=== PATIENT | male | born 1935 | race Caucasian/White ===

== ENCOUNTER 2018-07-03 09:02 | Day surgery (SDC) | payer BC ==
[~2018-07-03] VITALS: Ht 185.4 cm; Wt 83.9 kg
[~2018-07-03 09:02] MED LIST: LIDOcaine 1% 30ml preserv. free vial SQ STA
[2018-07-03 09:45] VITALS: BP 106/64
[2018-07-03] MEDS ORDERED: LACT1CAP65 PO (10:13)
[2018-07-03] MEDS ORDERED: [UNRECOGNIZED DRUG - OTHER] PO (10:13)
[2018-07-03] MEDS ORDERED: COU5T PO (10:13)
[2018-07-03] MEDS ORDERED: ALLO100T PO (10:13)
[2018-07-03] MEDS ORDERED: FURO80TA87 PO (10:13)
[2018-07-03] MEDS ORDERED: FOLI0.8T7 PO (10:13)
[2018-07-03] MEDS ORDERED: BETA1TAB20 PO (10:13)
[2018-07-03] MEDS ORDERED: FLO0.4C PO (10:13)
[2018-07-03] MEDS ORDERED: ESOM20CA PO (10:13)
[2018-07-03] MEDS ORDERED: DUTA0.5C40 PO (10:13)
--- NOTE | 2018-07-03 10:45 | NUR ---
ULTRASOUND ONLY. NO THORACENTESIS WAS DONE. PATIENT DISCHARGED WITH ALL BELONGINGS. NO DISTRESS NOTED. DENIES SOB.
== END 2018-07-03 10:48 | disposition home or self-care (01) ==
LOC: SSTAY O 09:02
PROVIDERS: ATTEND Radiology Diagnostic Radiology
DX: J90 Pleural effusion, not elsewhere classified (principal); J94.2 Hemothorax; I48.91 Unspecified atrial fibrillation; K21.9 Gastro-esophageal reflux disease without esophagitis; I12.0 Hypertensive chronic kidney disease with stage 5 chronic kidney disease or end stage renal disease; N18.5 Chronic kidney disease, stage 5; M19.90 Unspecified osteoarthritis, unspecified site; M10.9 Gout, unspecified; G89.29 Other chronic pain; H91.8X3 Other specified hearing loss, bilateral; Z99.2 Dependence on renal dialysis; Z72.89 Other problems related to lifestyle; Z86.2 Personal history of diseases of the blood and blood-forming organs and certain disorders involving the immune mechanism; Z85.828 Personal history of other malignant neoplasm of skin; Z79.01 Long term (current) use of anticoagulants; Z87.448 Personal history of other diseases of urinary system; Z88.2 Allergy status to sulfonamides; Z86.79 Personal history of other diseases of the circulatory system; Z87.891 Personal history of nicotine dependence; Z79.899 Other long term (current) drug therapy; Z88.8 Allergy status to other drugs, medicaments and biological substances; Z98.890 Other specified postprocedural states
CPT/HCPCS: 76604; J3490

== ENCOUNTER 2019-08-10 08:40 | Day surgery (SDC) | payer BC ==
[~2019-08-10] VITALS: Ht 182.9 cm; Wt 84.7 kg
[~2019-08-10 08:40] MED LIST changes: +ALLO100T PO; +BETA1TAB20 PO; +COU5T PO; +DUTA0.5C40 PO; +ESOM20CA PO; +FLO0.4C PO; +FOLI0.8T7 PO; +FURO80TA87 PO; +LACT1CAP65 PO; -LIDOcaine 1% 30ml preserv. free vial SQ STA; +[UNRECOGNIZED DRUG - OTHER] PO
[2019-08-10 09:35] VITALS: BP 95/55
[2019-08-10 10:21] LABS: BASOPHILS % (AUTO) 0.9 % (0-1); EOSINOPHILS # (AUTO) 0.1 X10'3 (0-0.9); EOSINOPHILS % (AUTO) 2.4 % (0-6); HEMATOCRIT 30.7 % (42.0-52.0); HEMOGLOBIN 10.4 g/dl (14.0-17.9); LYMPHOCYTES # (AUTO) 0.8 X10'3 (1.1-4.8); LYMPHOCYTES % (AUTO) 18.2 % (21-51); MEAN CORPUSCULAR HEMOGLOBIN 34.4 PG (27.0-31.0); MEAN CORPUSCULAR HGB CONC 33.9 g/dL (33.0-36.5); MEAN CORPUSCULAR VOLUME 101.6 FL (78-98); MEAN PLATELET VOLUME 8.1 FL (7.4-10.4); MONOCYTES # (AUTO) 0.4 X10'3 (0-0.9); MONOCYTES % (AUTO) 9.9 % (2-12); NEUTROPHILS % (AUTO) 68.6 % (42-75); PLATELET COUNT 206 X10'3 (140-440); RED BLOOD COUNT 3.02 X10'6 (4.70-6.10); RED CELL DISTRIBUTION WIDTH 14.9 % (11.5-14.5); WHITE BLOOD COUNT 4.4 X10'3 (4.5-11.0)
[2019-08-10 10:45] VITALS: BP 96/55
[2019-08-10 10:59] VITALS: BP 119/48
[2019-08-10 11:13] VITALS: BP 92/50
[2019-08-10 11:28] VITALS: BP 104/74
== END 2019-08-10 11:40 | disposition home or self-care (01) ==
LOC: SSTAY O 08:40
PROVIDERS: ATTEND Radiology Diagnostic Radiology
DX: Q61.3 Polycystic kidney, unspecified (principal); Z79.01 Long term (current) use of anticoagulants; R10.9 Unspecified abdominal pain
CPT/HCPCS: 36415; 49405; 85025; 85610

== ENCOUNTER 2019-12-31 08:08 | Day surgery (SDC) | payer BC ==
[~2019-12-31] VITALS: Ht 182.9 cm; Wt 82.7 kg
[2019-12-31] VITALS (8 sets, daily range): BP systolic 102–111; BP diastolic 57–68
[~2019-12-31 08:08] MED LIST changes: -COU5T PO; +WARF-113 PO
[2019-12-31] MEDS ORDERED: albumin 25% 100mL bottle x 1 IV PRN (08:35)
[2019-12-31 14:51] LABS: GLUCOSE,BODY FLUID 106 MG/DL; LDH,BODY FLUID 104 U/L; TOTAL PROTEIN,BODY FLUID 3.6 G/DL
[2019-12-31 15:09] LABS: BF RBC COUNT 70 /CU MM; BF WBC COUNT 130 /CU MM (0-1000); BFAPPEAR HAZY; BFCOLOR YELLOW; BFVOLUME 48 ML; LYMPHOCYTES,BODY FLUID 68 %; MONOCYTES,BODY FLUID 26 %; NEUTROPHILS,BODY FLUID 6 %
== END 2019-12-31 12:20 | disposition home or self-care (01) ==
LOC: SSTAY O 08:08
PROVIDERS: ATTEND Radiology Vascular & Interventional Radiology
DX: J90 Pleural effusion, not elsewhere classified (principal); I10 Essential (primary) hypertension; Z88.2 Allergy status to sulfonamides; Z88.8 Allergy status to other drugs, medicaments and biological substances; Z98.890 Other specified postprocedural states; Z79.899 Other long term (current) drug therapy; Z79.01 Long term (current) use of anticoagulants
CPT/HCPCS: 32555; 36415; 71045; 82945; 83615; 84155; 84157; 85610; 87070; 87075; 89051

== ENCOUNTER 2022-05-05 08:51 | Inpatient (IN) | payer BC ==
[2022-05-05] VITALS (9 sets, daily range): BP systolic 98–113; BP diastolic 49–74
[~2022-05-05] VITALS: Ht 182.9 cm; Wt 84.1 kg
[2022-05-05 09:49] LABS: BASOPHILS % (AUTO) 0.5 % (0-1); EOSINOPHILS % (AUTO) 0.1 % (0-6); LYMPHOCYTES # (AUTO) 0.8 X10'3 (1.1-4.8); LYMPHOCYTES % (AUTO) 20.3 % (21-51); MEAN CORPUSCULAR HEMOGLOBIN 31.5 PG (27.0-31.0); MEAN CORPUSCULAR HGB CONC 32.7 g/dL (33.0-36.5); MEAN CORPUSCULAR VOLUME 96.6 FL (78-98); MONOCYTES # (AUTO) 0.6 X10'3 (0-0.9); MONOCYTES % (AUTO) 15.5 % (2-12); NEUTROPHILS # (AUTO) 2.6 X10'3 (1.8-7.7); NEUTROPHILS % (AUTO) 63.6 % (42-75); PLATELET COUNT 222 X10'3 (140-440); RED BLOOD COUNT 1.82 X10'6 (4.70-6.10); RED CELL DISTRIBUTION WIDTH 16.7 % (11.5-14.5); WHITE BLOOD COUNT 4.1 X10'3 (4.5-11.0)
[2022-05-05 09:55] LABS: HEMATOCRIT 17.6 % (42.0-52.0); HEMOGLOBIN 5.7 g/dl (14.0-17.9)
[2022-05-05] MEDS ORDERED: normal saline 1000ml 1,000 ML IV ONE (10:00)
[2022-05-05] MEDS ORDERED: pantoprazole 40mg IV 80 MG in normal saline 100ml IV soln 100 ML IV ONE (10:00)
[2022-05-05 10:06] LABS: ALANINE AMINOTRANSFERASE 17 U/L (12-78); ALBUMIN 3.1 G/DL (3.4-5.0); ALKALINE PHOSPHATASE 63 IU/L (46-116); ANION GAP 14 (8-16); ASPARTATE AMINO TRANSFERASE 28 U/L (10-37); BILIRUBIN,TOTAL 0.4 MG/DL (0.1-1.0); BLOOD UREA NITROGEN 62 MG/DL (7-18); BUN/CREATININE RATIO 12.9 (5.4-32.0); CALCIUM 9.1 MG/DL (8.5-10.1); CHLORIDE 99 MMOL/L (99-107); CREATININE 4.81 MG/DL (0.60-1.10); GLUCOSE 121 MG/DL (70-104); POTASSIUM 4.3 MMOL/L (3.5-5.1); SODIUM 141 MMOL/L (135-145); TOTAL CARBON DIOXIDE 28.2 MMOL/L (24-32); TOTAL PROTEIN 6.1 G/DL (6.4-8.2); eGFR 12 ML/MIN
[2022-05-05 10:34] LABS: ANISOCYTOSIS 1+; PLATELET ESTIMATE NORMAL
[2022-05-05 10:35] LABS: ELLIPTOCYTES FEW; HYPOCHROMASIA 1+; SCHISTOCYTES FEW
[2022-05-05] MEDS ORDERED: tranexamic acid 1gm/0.7% sal. 100 ML IV ONE (11:05)
[2022-05-05] MEDS ORDERED: tranexamic acid inj. 1,000 MG in normal saline 100ml IV soln 90 ML IV ONE (11:15)
[2022-05-05] MEDS ORDERED: TEMA15CA PO (13:11)
[2022-05-05] MEDS ORDERED: AMOX-580 PO (13:12)
[2022-05-05] MEDS ORDERED: acetaminophen 325mg tablet PO PRN (13:30)
[2022-05-05] MEDS ORDERED: magnesium 4gm in 100ml NS 100 ML IV PRN (13:30)
[2022-05-05] MEDS ORDERED: HYDROcodone/acetaminophen 5mg/325mg tablet PO PRN (13:30)
[2022-05-05] MEDS ORDERED: magnesium Cl slow-release 64mg tablet PO PRN (13:30)
[2022-05-05] MEDS ORDERED: ondansetron/PF 4mg/2ml inj IV PRN (13:30)
[2022-05-05] MEDS ORDERED: HYDROcodone/acetaminophen 10/325mg tab PO PRN (13:30)
[2022-05-05] MEDS ORDERED: potassium Cl 20 mEq SR tablet PO PRN ×2 (13:30)
[2022-05-05] MEDS ORDERED: mag hydrox/Alum hydrox/simeth 30ml oral suspension PO PRN (13:30)
[2022-05-05] MEDS ORDERED: potassium Cl 40MEQ/1/2NS 520ml 520 ML IV PRN (13:30)
[2022-05-05] MEDS ORDERED: magnesium hydroxide 30ml (MOM) UD suspension PO PRN (13:30)
[2022-05-05] MEDS ORDERED: AMOX500T2 PO (14:27)
[2022-05-05] MEDS ORDERED: CALC667T6 PO (14:29)
[2022-05-05] MEDS ORDERED: FURO40TA4 PO (14:31)
[2022-05-05] MEDS ORDERED: FURO80TA3 PO (14:33)
[2022-05-05 15:15] LABS: APTT 49 SECONDS (22-32)
--- NOTE | 2022-05-05 15:20 | NUR ---
STARTED FFP [id number]
[2022-05-05] MEDS ORDERED: phytonadione inj. 10 MG in normal saline 100ml IV soln 100 ML IV ONE (15:40)
--- NOTE | 2022-05-05 15:49 | NUR ---
Talked to Dr. Robles about the INR being critical 5.0. New orders have been written
[2022-05-05] MEDS ORDERED: pantoprazole 40MG/NS 100ML BAG 100 ML IV SCH (16:00)
[2022-05-05] MEDS: calcium acetate 667mg (PhosLO) capsule PO SCH (17:00)
[2022-05-05 17:05] LABS: CLARITY,URINE CLOUDY (Clear); COLOR,URINE YELLOW (Yellow); GLUCOSE, URINE NEGATIVE (Neg); KETONES,URINE NEGATIVE (Neg); LEUKOCYTE ESTERASE ,URINE NEGATIVE (Neg); NITRITES, URINE NEGATIVE (Neg); OCCULT BLOOD,URINE LARGE (Neg); PROTEIN,URINE 100 mg/dl (Neg); UROBILINOGEN,URINE 0.2 E.U/dL (0.2-1.0)
[2022-05-05 17:08] LABS: UA COLLECTION TYPE CLN CATCH MIDSTREAM
[2022-05-05 17:11] LABS: BACTERIA,URINE 1+ /HPF (Neg); RBC,URINE TNTC /HPF (0-2)
[2022-05-05 17:12] LABS: SQUAMOUS EPITHELIAL CELL,UR FEW /LPF (FEW); WBC,URINE 50-100 /HPF (0-4)
[2022-05-05 17:13] LABS: WBC CLUMPS,URINE MANY /HPF (NEGATIVE)
[2022-05-05] MEDS: pantoprazole 40MG/NS 100ML BAG 100 ML IV SCH ×2 (17:18→21:10)
[2022-05-05] MEDS: docusate sod 100mg capsule PO SCH (20:00)
[2022-05-05 20:07] LABS: BASOPHILS % (AUTO) 0.4 % (0-1); EOSINOPHILS % (AUTO) 0.2 % (0-6); HEMOGLOBIN 7.1 g/dl (14.0-17.9); LYMPHOCYTES # (AUTO) 0.9 X10'3 (1.1-4.8); LYMPHOCYTES % (AUTO) 24.9 % (21-51); MEAN CORPUSCULAR HEMOGLOBIN 31.1 PG (27.0-31.0); MEAN CORPUSCULAR HGB CONC 33.4 g/dL (33.0-36.5); MEAN CORPUSCULAR VOLUME 93.1 FL (78-98); MEAN PLATELET VOLUME 8.1 FL (7.4-10.4); MONOCYTES # (AUTO) 0.6 X10'3 (0-0.9); MONOCYTES % (AUTO) 15.2 % (2-12); NEUTROPHILS # (AUTO) 2.3 X10'3 (1.8-7.7); NEUTROPHILS % (AUTO) 59.3 % (42-75); PLATELET COUNT 182 X10'3 (140-440); RED BLOOD COUNT 2.28 X10'6 (4.70-6.10); RED CELL DISTRIBUTION WIDTH 16.1 % (11.5-14.5); WHITE BLOOD COUNT 3.8 X10'3 (4.5-11.0)
[2022-05-05 20:10] LABS: HEMATOCRIT 21.2 % (42.0-52.0)
[2022-05-05] MEDS: K and/or MAG REPLACEMENT MC SCH (20:29)
[2022-05-06] VITALS (12 sets, daily range): BP systolic 109–138; BP diastolic 51–70
[2022-05-06] MEDS: pantoprazole 40MG/NS 100ML BAG 100 ML IV SCH ×4 (01:17→16:43)
[2022-05-06 05:06] LABS: BASOPHILS % (AUTO) 0.7 % (0-1); EOSINOPHILS % (AUTO) 0.4 % (0-6); LYMPHOCYTES # (AUTO) 0.9 X10'3 (1.1-4.8); LYMPHOCYTES % (AUTO) 24.2 % (21-51); MEAN CORPUSCULAR HEMOGLOBIN 31.2 PG (27.0-31.0); MEAN CORPUSCULAR HGB CONC 33.5 g/dL (33.0-36.5); MEAN CORPUSCULAR VOLUME 93.1 FL (78-98); MEAN PLATELET VOLUME 8.3 FL (7.4-10.4); MONOCYTES # (AUTO) 0.6 X10'3 (0-0.9); MONOCYTES % (AUTO) 15.1 % (2-12); NEUTROPHILS # (AUTO) 2.3 X10'3 (1.8-7.7); NEUTROPHILS % (AUTO) 59.6 % (42-75); PLATELET COUNT 190 X10'3 (140-440); RED BLOOD COUNT 2.13 X10'6 (4.70-6.10); RED CELL DISTRIBUTION WIDTH 16.5 % (11.5-14.5); WHITE BLOOD COUNT 3.8 X10'3 (4.5-11.0)
[2022-05-06 05:11] LABS: HEMOGLOBIN 6.6 g/dl (14.0-17.9)
[2022-05-06 05:12] LABS: HEMATOCRIT 19.9 % (42.0-52.0)
[2022-05-06 05:14] LABS: ALANINE AMINOTRANSFERASE 14 U/L (12-78); ALBUMIN 2.8 G/DL (3.4-5.0); ALKALINE PHOSPHATASE 54 IU/L (46-116); ANION GAP 13 (8-16); ASPARTATE AMINO TRANSFERASE 26 U/L (10-37); BILIRUBIN,TOTAL 0.5 MG/DL (0.1-1.0); BLOOD UREA NITROGEN 74 MG/DL (7-18); BUN/CREATININE RATIO 12.8 (5.4-32.0); CALCIUM 8.6 MG/DL (8.5-10.1); CHLORIDE 102 MMOL/L (99-107); CREATININE 5.76 MG/DL (0.60-1.10); GLUCOSE 105 MG/DL (70-104); POTASSIUM 4.3 MMOL/L (3.5-5.1); SODIUM 144 MMOL/L (135-145); TOTAL CARBON DIOXIDE 28.6 MMOL/L (24-32); TOTAL PROTEIN 5.5 G/DL (6.4-8.2); eGFR 9 ML/MIN
--- NOTE | 2022-05-06 05:27 | NUR ---
[id number] Dr Romero paged regarding Hgb 6.6 Hct 19.9
--- NOTE | 2022-05-06 06:20 | NUR ---
pt up to [facility]
--- NOTE | 2022-05-06 06:31 | NUR ---
pt with large liquid black stool x 1, pt cleaned and asst. back to bed Addendum: 05/06/22 at 0632 by FABRICIO charged in error
--- NOTE | 2022-05-06 06:33 | NUR ---
pt with large liquid black stool, pt asst. back to bed at this time
[2022-05-06] MEDS: calcium acetate 667mg (PhosLO) capsule PO SCH ×3 (07:00→17:56)
[2022-05-06] MEDS ORDERED: allopurinol 100mg tablet PO SCH (08:00)
[2022-05-06] MEDS: docusate sod 100mg capsule PO SCH (08:00)
[2022-05-06] MEDS ORDERED: furosemide 40mg tablet PO SCH ×2 (08:00→20:00)
[2022-05-06] MEDS: K and/or MAG REPLACEMENT MC SCH (08:00)
[2022-05-06] MEDS ORDERED: dutasteride 0.5 MG capsule PO SCH (08:00)
[2022-05-06 11:11] LABS: BASOPHILS % (AUTO) 0.4 % (0-1); EOSINOPHILS % (AUTO) 0.2 % (0-6); HEMATOCRIT 23.1 % (42.0-52.0); HEMOGLOBIN 7.7 g/dl (14.0-17.9); MEAN CORPUSCULAR HGB CONC 33.4 g/dL (33.0-36.5); MEAN CORPUSCULAR VOLUME 92.7 FL (78-98); MEAN PLATELET VOLUME 8.2 FL (7.4-10.4); MONOCYTES # (AUTO) 0.5 X10'3 (0-0.9); MONOCYTES % (AUTO) 13.2 % (2-12); NEUTROPHILS # (AUTO) 2.6 X10'3 (1.8-7.7); NEUTROPHILS % (AUTO) 61.2 % (42-75); PLATELET COUNT 197 X10'3 (140-440); RED BLOOD COUNT 2.49 X10'6 (4.70-6.10); RED CELL DISTRIBUTION WIDTH 15.9 % (11.5-14.5); WHITE BLOOD COUNT 4.2 X10'3 (4.5-11.0)
[2022-05-06] MEDS ORDERED: MIDAZolam 1 MG/ML 5ML VIAL ONE (14:27)
[2022-05-06] MEDS ORDERED: LIDOcaine Viscous 15ml cup ONE (14:27)
[2022-05-06] MEDS ORDERED: FENTANYL CITRATE/PF 50 MCG/1 ML VIAL ONE (14:27)
--- NOTE | 2022-05-06 19:45 | NUR ---
pt wanted to go home per ,explained to pt just had egd but pt really wants to leave.informed dr. sanchez can't go home tonight pt wants to leave ama.iv dcd no complications noted. at bedside.signed ama and left with .
[2022-05-07] MEDS ORDERED: normal saline 1000ml 100 ML IV PRN (08:00)
[2022-05-07] MEDS ORDERED: EPOETIN ALFA-EPBX 20,000 UNIT/ML 1 ML MDV IV ONE (08:00)
[2022-05-08] MEDS ORDERED: allopurinol 100mg tablet PO SCH (08:00)
== END 2022-05-06 20:32 | disposition left against medical advice (07) | DRG 377 ==
LOC: ER 08:51 → ED HOLD 13:34 → EDBEDREQ 05-06 04:13 → PCU 3S 05-06 07:38
PROVIDERS: ADMIT Internal Medicine; ATTEND Internal Medicine
PROC: 30233N1 Transfusion of Nonautologous Red Blood Cells into Peripheral Vein, Percutaneous Approach (ICD-10-PCS; 2022-05-05)
PROC: 30233K1 Transfusion of Nonautologous Frozen Plasma into Peripheral Vein, Percutaneous Approach (ICD-10-PCS; 2022-05-05)
PROC: 0DB78ZX Excision of Stomach, Pylorus, Via Natural or Artificial Opening Endoscopic, Diagnostic (ICD-10-PCS; principal; 2022-05-06)
DX: K29.71 Gastritis, unspecified, with bleeding (principal); N18.6 End stage renal disease; I12.0 Hypertensive chronic kidney disease with stage 5 chronic kidney disease or end stage renal disease; D62 Acute posthemorrhagic anemia; D50.8 Other iron deficiency anemias; K44.9 Diaphragmatic hernia without obstruction or gangrene; K22.2 Esophageal obstruction; R79.1 Abnormal coagulation profile; Z53.29 Procedure and treatment not carried out because of patient's decision for other reasons; Z99.2 Dependence on renal dialysis; Z88.2 Allergy status to sulfonamides; Z88.8 Allergy status to other drugs, medicaments and biological substances; Z79.899 Other long term (current) drug therapy
CPT/HCPCS: 36415; 36430; 43239; 71046; 80053; 81001; 83605; 83735; 84145; 84484; 85008; 85025; 85610; 85730; 86885; 86900; 86901; 86920; 87040; 87088; 93005; 96365; 96375; 99152; 99285; A4620; C9113; G0378; J2250; J3010; J3430; J3490; J7030; J7040; P9016; P9059

== ENCOUNTER 2022-09-02 08:49 | Day surgery (SDC) | payer BC ==
[~2022-09-02] VITALS: Ht 182.9 cm; Wt 84.6 kg
[~2022-09-02 08:49] MED LIST changes: +AMOX500T2 PO; -BETA1TAB20 PO; +CALC667T6 PO; -FLO0.4C PO; -FOLI0.8T7 PO; +FURO80TA3 PO; -FURO80TA87 PO; -LACT1CAP65 PO; +TEMA15CA PO; -[UNRECOGNIZED DRUG - OTHER] PO
[2022-09-02 09:56] LABS: BASOPHILS # (AUTO) 0.1 X10'3 (0-0.2); BASOPHILS % (AUTO) 1.7 % (0-1); EOSINOPHILS # (AUTO) 0.1 X10'3 (0-0.9); EOSINOPHILS % (AUTO) 3.5 % (0-6); HEMATOCRIT 32.9 % (42.0-52.0); LYMPHOCYTES # (AUTO) 0.6 X10'3 (1.1-4.8); LYMPHOCYTES % (AUTO) 14.7 % (21-51); MEAN CORPUSCULAR HEMOGLOBIN 31.7 PG (27.0-31.0); MEAN CORPUSCULAR HGB CONC 33.3 g/dL (33.0-36.5); MEAN PLATELET VOLUME 7.8 FL (7.4-10.4); MONOCYTES # (AUTO) 0.5 X10'3 (0-0.9); MONOCYTES % (AUTO) 11.2 % (2-12); NEUTROPHILS # (AUTO) 2.8 X10'3 (1.8-7.7); NEUTROPHILS % (AUTO) 68.9 % (42-75); PLATELET COUNT 205 X10'3 (140-440); RED BLOOD COUNT 3.47 X10'6 (4.70-6.10); WHITE BLOOD COUNT 4.1 X10'3 (4.5-11.0)
[2022-09-02] MEDS ORDERED: MECO10005 PO (10:19)
[2022-09-02] MEDS ORDERED: ESZO2TAB31 PO (10:19)
[2022-09-02] MEDS ORDERED: FERR134T2 PO (10:19)
[2022-09-02] MEDS ORDERED: VIT1CAPS46 PO (10:19)
[2022-09-02] MEDS ORDERED: FOLI1TAB34 PO (10:19)
[2022-09-02] MEDS ORDERED: ZINC50TA60 PO (10:19)
[2022-09-02] MEDS ORDERED: METO50TA7 PO (10:19)
[2022-09-02 10:27] VITALS: BP 116/66
[2022-09-02] MEDS ORDERED: LIDOcaine 1% 30ml preserv. free vial IJ STA (10:59)
[2022-09-02 11:04] LABS: ANISOCYTOSIS 2+; PLATELET ESTIMATE NORMAL; TEAR DROP CELLS FEW
[2022-09-02 11:45] VITALS: BP_SYST 115; BP_SYST 116; BP_DIAS 57; BP_DIAS 66
[2022-09-02 12:55] VITALS: BP 115/57
== END 2022-09-02 13:00 | disposition home or self-care (01) ==
LOC: SSTAY O 08:49
PROVIDERS: ATTEND Radiology Diagnostic Radiology
DX: N28.1 Cyst of kidney, acquired (principal); N18.6 End stage renal disease; Z95.2 Presence of prosthetic heart valve; Z98.890 Other specified postprocedural states; Z88.2 Allergy status to sulfonamides; Z88.8 Allergy status to other drugs, medicaments and biological substances; Z88.1 Allergy status to other antibiotic agents; Z79.899 Other long term (current) drug therapy
CPT/HCPCS: 36415; 50390; 76942; 85008; 85025; 85610